=== PATIENT | male | born 1955 | race Hispanic/Latino ===

== ENCOUNTER → 2019-04-21 | Outpatient (CLI) | payer MEDICARE ==
--- NOTE | 2019-04-21 11:19 | CT ---
EXAM DESCRIPTION: Abdomen/Pelvis w/Contrast CLINICAL HISTORY: 64 years Male, GENERALIZED ABDOMINAL PAIN COMPARISON: Ultrasound of the abdomen dated 12/15/2014. TECHNIQUE: Contiguous 3 mm axial images were obtained from the lung bases to the level of the proximal femora after the administration of intravenous and oral contrast. Sagittal and coronal reconstructions were reviewed. FINDINGS: THORAX: The imaged lower thorax demonstrates no gross abnormality. LIVER: 2 simple cysts adjacent to each other are noted in hepatic segment 4. The liver otherwise appears grossly unremarkable. GALLBLADDER: Grossly unremarkable. PANCREAS: Appears normal with no cystic or solid lesions. SPLEEN: Normal ADRENAL GLANDS: Normal with no nodules or masses. KIDNEYS: 2.3 mm nonobstructive calculus is noted in the inferior pole of the right kidney. A small simple cyst is noted in the upper pole of the right kidney. Partially exophytic cyst is identified in the upper pole of the left kidney. 1.9 cm calculus is identified in the upper pole renal calyx. Few small nonobstructive calculi measuring up to 4 mm are noted in the inferior pole of the left kidney. No focal masses are identified. The visualized ureters appear grossly unremarkable. STOMACH: The stomach is mildly distended with no gross abnormality. SMALL BOWEL: The small bowel loops demonstrate variable degrees of distention with no abnormal dilatation or other signs to suggest bowel obstruction. LARGE BOWEL: Mild constipation is present. Multiple diverticula are noted throughout the descending and sigmoid colon, with no acute inflammation. The appendix is well-visualized and appears normal No evidence of free intraperitoneal air or fluid. RETROPERITONEUM: The abdominal aorta is nonaneurysmal with minimal atherosclerosis. The inferior vena cava is normal in size and caliber. No abnormally enlarged retroperitoneal lymph nodes are identified. URINARY BLADDER:The urinary bladder is well-distended with no gross abnormality. The prostate gland is mildly enlarged in size. Seminal vesicles appear normal. ADDITIONAL FINDINGS: None. BONES: Mild degenerative changes are identified in the visualized bones.No evidence of osteophytic or osteoblastic lesions. IMPRESSION: 1. Nonobstructive nephrolithiasis of both kidneys. No hydronephrosis or perinephric fluid collections. 2. Colonic diverticulosis with no acute diverticulitis. This exam was performed according to our departmental dose-optimization program, which includes automated exposure control, adjustment of the mA and/or kV according to patient size and/or use of iterative reconstruction technique. Electronically signed by: Carey Millard MD 04/21/2019 11:17 AM CDT
== END ==
LOC: LAB.O 10:10
PROVIDERS: ATTEND Nurse Practitioner Family
DX: N20.0 Calculus of kidney (principal); K57.30 Diverticulosis of large intestine without perforation or abscess without bleeding